=== PATIENT | female | born 1940 | race Caucasian/White ===

== ENCOUNTER → 2022-04-30 13:28 | Outpatient (CLI) | payer MEDICARE, OTHER, SELFPAY ==
--- NOTE | 2022-04-30 13:45 | DI.CT.S_ITS ---
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 For radiation dose reduction, the following was used: automated exposure control, adjustment of mA and/or kV according to patient size. COMPARISON: None. FINDINGS: Image quality: Excellent. CSF Spaces: Basal cisterns are patent. No extra-axial fluid collections. Ventricles are normal in size and shape. Brain: No midline shift. No intracranial bleeds or masses. No abnormal intracranial enhancement. Treadwell-white interface appears normal. Atrophy and chronic ischemic change. Skull and face: Calvarium and visualized facial bones appear intact, without suspicious lesions. Right intra-ocular lens replacement good position Sinuses: Visualized sinuses and mastoids are clear. IMPRESSION: Moderate atrophy and white matter chronic ischemic change without intracranial hemorrhage or abnormal mass lesion Approved by: Jose Luis Patel M.D. on 04/30/2022 at 16:51
== END ==
PROVIDERS: Family Provider Internal Medicine; PCP Internal Medicine; Referring Provider Internal Medicine; Visit Provider Internal Medicine
DX: F04 Amnestic disorder due to known physiological condition (principal); G31.9 Degenerative disease of nervous system, unspecified
CPT/HCPCS: 70470